=== PATIENT | female | born 1945 ===

== ENCOUNTER 2021-10-04 10:25 | Outpatient (CLI) | payer MEDICARE | END 2021-10-04 10:26 | disposition home or self-care (01) | LOC: BICCT 10:25 | PROVIDERS: ATTEND Neurological Surgery | DX: M47.26 Other spondylosis with radiculopathy, lumbar region (principal); Z98.890 Other specified postprocedural states; M79.89 Other specified soft tissue disorders | CPT/HCPCS: 72131 ==